=== PATIENT | female | born 1940 | race Caucasian/White ===

== ENCOUNTER 2017-11-02 18:00 | Inpatient (IN) | payer MEDICARE ==
[~2017-11-02] VITALS: Ht 157.5 cm; Wt 47.3 kg
[2017-11-02 18:00] VITALS: BP 182/74
[2017-11-02] MEDS ORDERED: ACETAMINOPHEN 650MG/20.3ML UDC PO PRN (19:00)
[2017-11-02] MEDS ORDERED: DEXTROSE 50% WATER 50ML SYRINGE IV PRN (19:00)
[2017-11-02] MEDS ORDERED: ZOLPIDEM TARTRATE 5MG TABLET PO PRN (19:00)
[2017-11-02] MEDS ORDERED: HYDROMORPHONE HCL/PF 2MG/ML CPJ IV NR (19:06)
[2017-11-02 20:00] VITALS: BP_SYST 192; BP_SYST 196; BP_DIAS 68; BP_DIAS 82
[2017-11-02 20:35] LABS: BASOPHILS % 0.5 % (0.0-2.0); EOSINOPHILS % 0.4 % (0.0-5.0); HEMATOCRIT. 31.9 % (36.0-48.0); LYMPHOCYTES % 8.8 % (20.0-50.0); MEAN CORPUSCULAR HEMOGLOBIN 26.2 pg (28.0-32.0); MEAN CORPUSCULAR VOLUME 76.1 fL (81.0-99.0); MEAN PLATELET VOLUME 7.5 fl (7.4-10.4); MONOCYTES % 7.9 % (2.0-8.0); NEUTROPHILS % 82.4 % (40.0-76.0); PLATELET 302 x1000/uL (130-400); RED BLOOD CELL COUNT 4.19 mill/uL (4.2-5.4); RED CELL DISTRIBUTION WIDTH 17.4 % (11.6-14.6)
[2017-11-02 20:36] LABS: PROTHROMBIN TIME 9.7 sec (9.1-11.1)
[2017-11-02 22:00] VITALS: BP 174/74
[2017-11-02] MEDS: INSULIN LISPRO 100 UNITS/ML SUBCUT SCH (22:08)
[2017-11-03] VITALS (11 sets, daily range): BP systolic 120–196; BP diastolic 71–96
[2017-11-03] MEDS: HYDROMORPHONE HCL/PF 2MG/ML CPJ IV PRN ×5 (00:35→20:59)
[2017-11-03] MEDS ORDERED: CHOL400T MT (02:33)
[2017-11-03] MEDS ORDERED: ALOG1TAB4 PO (02:33)
[2017-11-03] MEDS ORDERED: SIMV40TA5 MT (02:33)
[2017-11-03] MEDS ORDERED: ASPI-1159 PO (02:33)
[2017-11-03] MEDS ORDERED: BENA20TA10 PO (02:33)
[2017-11-03] MEDS ORDERED: CLOP75TA16 PO (02:33)
[2017-11-03] MEDS: INSULIN LISPRO 100 UNITS/ML SUBCUT SCH ×4 (07:20→21:00)
[2017-11-03] MEDS ORDERED: MEDICATION NOT ON FORMULARY EA (Benazepril Hcl 20 MG) PO SCH (09:00)
[2017-11-03] MEDS ORDERED: CHOLECALCIFEROL MT SCH (09:00)
[2017-11-03] MEDS: CLOPIDOGREL 75MG TABLET PO SCH (09:50)
[2017-11-03] MEDS: ASPIRIN 81MG EC TABLET PO SCH (09:50)
[2017-11-03] MEDS: BENAZEPRIL 20MG TABLET PO SCH ×2 (09:50→20:58)
[2017-11-03] MEDS: CHOLECALCIFEROL (VIT D3) 400 UNIT TABLET PO SCH (09:51)
[2017-11-03] MEDS: ENOXAPARIN 40MG/0.4ML SYR SUBCUT SCH ×2 (11:00→20:57)
[2017-11-03] MEDS ORDERED: POTASSIUM CHLORIDE 20MEQ TABLET SR PO NR (11:00)
[2017-11-03] MEDS: AMLODIPINE 5MG TABLET PO SCH ×2 (11:11→20:57)
[2017-11-03] MEDS: NITROGLYCERIN OINT 1GM/INCH UDPKT TD SCH ×3 (11:11→19:01)
[2017-11-03] MEDS ORDERED: IOHEXOL-350 100 ML BOTTLE ONE ×2 (15:11→15:16)
[2017-11-03] MEDS: ATORVASTATIN CALCIUM 20MG TABLET PO SCH (20:57)
[2017-11-03] MEDS ORDERED: MEDICATION NOT ON FORMULARY EA (Simvastatin 1 TAB) MT SCH (21:00)
[2017-11-03] MEDS: CLONIDINE 0.1MG TABLET PO SCH (22:11)
[2017-11-04] VITALS (16 sets, daily range): BP systolic 121–180; BP diastolic 55–80
[2017-11-04] MEDS: NITROGLYCERIN OINT 1GM/INCH UDPKT TD SCH ×4 (00:12→18:52)
[2017-11-04] MEDS: HYDROMORPHONE HCL/PF 2MG/ML CPJ IV PRN ×2 (02:04→09:48)
[2017-11-04] MEDS: CLONIDINE 0.1MG TABLET PO SCH ×3 (05:30→22:00)
[2017-11-04] MEDS: SODIUM CHLORIDE 0.45% 1,000 ML IV SCH ×2 (05:34→18:52)
[2017-11-04 06:18] LABS: HEMATOCRIT. 32.4 % (36.0-48.0); HEMOGLOBIN. 10.9 g/dL (12.0-16.0); MEAN CORPUSCULAR HEMOGLOBIN 26.1 pg (28.0-32.0); MEAN CORPUSCULAR VOLUME 77.6 fL (81.0-99.0); MEAN PLATELET VOLUME 7.8 fl (7.4-10.4); PLATELET 289 x1000/uL (130-400); RED BLOOD CELL COUNT 4.17 mill/uL (4.2-5.4); RED CELL DISTRIBUTION WIDTH 17.2 % (11.6-14.6)
[2017-11-04] MEDS: INSULIN LISPRO 100 UNITS/ML SUBCUT SCH ×4 (07:20→22:35)
[2017-11-04] MEDS: ENOXAPARIN 40MG/0.4ML SYR SUBCUT SCH (08:28)
[2017-11-04] MEDS: CLOPIDOGREL 75MG TABLET PO SCH (08:29)
[2017-11-04] MEDS: AMLODIPINE 5MG TABLET PO SCH ×2 (08:29→20:17)
[2017-11-04] MEDS: BENAZEPRIL 20MG TABLET PO SCH ×2 (08:29→22:27)
[2017-11-04] MEDS: ASPIRIN 81MG EC TABLET PO SCH (08:29)
[2017-11-04] MEDS: CHOLECALCIFEROL (VIT D3) 400 UNIT TABLET PO SCH (08:29)
[2017-11-04 09:02] LABS: PLATELET ESTIMATE NORMAL
[2017-11-04] MEDS ORDERED: BUPIVACAINE HCL/PF 0.5% (5MG/ML) 10ML ONE (12:45)
[2017-11-04] MEDS ORDERED: BACITRACIN ZINC 15GM TUBE TOP ONE (12:45)
[2017-11-04] MEDS ORDERED: THROMBIN (BOVINE) 5000 UNITS/VIAL TOP ONE ×2 (12:45→12:46)
[2017-11-04] MEDS ORDERED: LIDOCAINE HCL 1% 10 MG/ML 10ML VIAL ONE (12:45)
[2017-11-04] MEDS ORDERED: HEPARIN SODIUM 1,000 UNIT/1ML VIAL IV ONE (12:45)
[2017-11-04] MEDS ORDERED: BACITRACIN 50,000 UNITS/VIAL ONE (12:46)
[2017-11-04] MEDS ORDERED: GELATIN SPONGE,COMPRESSED SZ 100 ONE (12:46)
[2017-11-04] MEDS ORDERED: LABETALOL 5MG/ML SYR 20 MG/4 ML SYRINGE IV PRN (14:15)
[2017-11-04] MEDS ORDERED: MEPERIDINE HCL/PF 25MG/ML CPJ IV PRN (14:15)
[2017-11-04] MEDS ORDERED: ONDANSETRON HCL 4MG/2ML INJ IV PRN ×2 (14:15→20:45)
[2017-11-04] MEDS ORDERED: HYDROMORPHONE HCL/PF 2MG/ML CPJ IV PRN (14:15)
[2017-11-04] MEDS ORDERED: FENTANYL CITRATE/PF 50MCG/ML 2ML VIAL ONE (14:48)
[2017-11-04] MEDS ORDERED: MIDAZOLAM HCL 2 MG/2 ML VIAL ONE (14:48)
[2017-11-04] MEDS ORDERED: PROPOFOL 200MG/20ML VIAL IV ONE (14:48)
[2017-11-04] MEDS ORDERED: DEXAMETHASONE 4MG/ML 1ML VIAL ONE ×2 (14:49→15:08)
[2017-11-04] MEDS ORDERED: ONDANSETRON HCL 4MG/2ML INJ ONE ×2 (14:49→15:08)
[2017-11-04] MEDS ORDERED: IOHEXOL-300 100 ML BOTTLE ONE (15:31)
[2017-11-04] MEDS ORDERED: IODIXANOL 320MG/ML 100 ML BOTTLE IV ONE (15:31)
[2017-11-04] MEDS ORDERED: HEPARIN 1000 UNITS/ML 10ML ONE (16:31)
[2017-11-04] MEDS ORDERED: PROTAMINE SULFATE 10MG/ML VIAL 5ML IV ONE (16:31)
[2017-11-04] MEDS: ATORVASTATIN CALCIUM 20MG TABLET PO SCH (20:17)
[2017-11-04] MEDS: MORPHINE SULFATE 4 MG/ML CPJ (NOT FOR IM USE) IV PRN (20:22)
[2017-11-05] VITALS (15 sets, daily range): BP systolic 115–138; BP diastolic 50–68
[2017-11-05] MEDS: NITROGLYCERIN OINT 1GM/INCH UDPKT TD SCH ×5 (00:43→23:05)
[2017-11-05] MEDS: CLONIDINE 0.1MG TABLET PO SCH ×3 (06:10→22:43)
[2017-11-05] MEDS: SODIUM CHLORIDE 0.45% 1,000 ML IV SCH (06:10)
[2017-11-05 07:26] LABS: HEMATOCRIT. 27.2 % (36.0-48.0); HEMOGLOBIN. 9.2 g/dL (12.0-16.0); MEAN CORPUSCULAR HEMOGLOBIN 26.3 pg (28.0-32.0); MEAN CORPUSCULAR VOLUME 77.5 fL (81.0-99.0); PLATELET 247 x1000/uL (130-400); RED BLOOD CELL COUNT 3.52 mill/uL (4.2-5.4); RED CELL DISTRIBUTION WIDTH 17.4 % (11.6-14.6)
[2017-11-05] MEDS: INSULIN LISPRO 100 UNITS/ML SUBCUT SCH ×4 (08:00→20:11)
[2017-11-05] MEDS: CLOPIDOGREL 75MG TABLET PO SCH (08:01)
[2017-11-05] MEDS: ASPIRIN 81MG EC TABLET PO SCH (08:01)
[2017-11-05] MEDS: BENAZEPRIL 20MG TABLET PO SCH ×2 (08:01→20:13)
[2017-11-05] MEDS: AMLODIPINE 5MG TABLET PO SCH ×2 (08:01→20:12)
[2017-11-05] MEDS: CHOLECALCIFEROL (VIT D3) 400 UNIT TABLET PO SCH (08:02)
[2017-11-05] MEDS: ENOXAPARIN 40MG/0.4ML SYR SUBCUT SCH (08:02)
[2017-11-05 10:35] LABS: PLATELET ESTIMATE NORMAL
[2017-11-05] MEDS: MAGNESIUM/ALUMINUM HYDROXIDE/SIMETHICONE 30ML UDC PO PRN (15:05)
[2017-11-05] MEDS: MORPHINE SULFATE 4 MG/ML CPJ (NOT FOR IM USE) IV PRN ×2 (18:28→22:13)
[2017-11-05] MEDS: ATORVASTATIN CALCIUM 20MG TABLET PO SCH (20:13)
[2017-11-06] VITALS (12 sets, daily range): BP systolic 115–156; BP diastolic 50–76
[2017-11-06] MEDS: CLONIDINE 0.1MG TABLET PO SCH ×3 (05:21→22:14)
[2017-11-06] MEDS: NITROGLYCERIN OINT 1GM/INCH UDPKT TD SCH ×4 (05:22→23:07)
[2017-11-06] MEDS: HYDROMORPHONE HCL/PF 2MG/ML CPJ IV PRN (06:37)
[2017-11-06 07:49] LABS: BASOPHILS % 0.3 % (0.0-2.0); EOSINOPHILS % 0.2 % (0.0-5.0); HEMATOCRIT. 23.7 % (36.0-48.0); HEMOGLOBIN. 8.2 g/dL (12.0-16.0); MEAN CORPUSCULAR HEMOGLOBIN 26.8 pg (28.0-32.0); MEAN CORPUSCULAR VOLUME 77.5 fL (81.0-99.0); MONOCYTES % 11.2 % (2.0-8.0); NEUTROPHILS % 77.3 % (40.0-76.0); PLATELET 218 x1000/uL (130-400); RED BLOOD CELL COUNT 3.06 mill/uL (4.2-5.4); RED CELL DISTRIBUTION WIDTH 16.9 % (11.6-14.6)
[2017-11-06] MEDS: ENOXAPARIN 60MG/0.6ML SYR SUBCUT SCH (08:04)
[2017-11-06] MEDS: CLOPIDOGREL 75MG TABLET PO SCH (08:05)
[2017-11-06] MEDS: AMLODIPINE 5MG TABLET PO SCH ×2 (08:08→20:42)
[2017-11-06] MEDS: BENAZEPRIL 20MG TABLET PO SCH ×2 (08:08→20:42)
[2017-11-06] MEDS: ASPIRIN 81MG EC TABLET PO SCH (08:08)
[2017-11-06] MEDS: INSULIN LISPRO 100 UNITS/ML SUBCUT SCH ×4 (08:09→20:45)
[2017-11-06] MEDS: CHOLECALCIFEROL (VIT D3) 400 UNIT TABLET PO SCH (08:16)
[2017-11-06] MEDS: ATORVASTATIN CALCIUM 20MG TABLET PO SCH (20:42)
[2017-11-06] MEDS ORDERED: HYDROCODONE/APAP 7.5/325MG 1 TAB TABLET PO PRN (23:30)
[2017-11-07] VITALS (12 sets, daily range): BP systolic 129–178; BP diastolic 50–89
[2017-11-07] MEDS: CLONIDINE 0.1MG TABLET PO SCH ×3 (06:18→23:25)
[2017-11-07] MEDS: NITROGLYCERIN OINT 1GM/INCH UDPKT TD SCH ×4 (06:18→23:26)
[2017-11-07] MEDS: INSULIN LISPRO 100 UNITS/ML SUBCUT SCH ×4 (08:10→21:21)
[2017-11-07] MEDS: MORPHINE SULFATE 4 MG/ML CPJ (NOT FOR IM USE) IV PRN (08:15)
[2017-11-07] MEDS: CLOPIDOGREL 75MG TABLET PO SCH (08:17)
[2017-11-07] MEDS: ASPIRIN 81MG EC TABLET PO SCH (08:17)
[2017-11-07] MEDS: ENOXAPARIN 60MG/0.6ML SYR SUBCUT SCH (08:17)
[2017-11-07] MEDS: CHOLECALCIFEROL (VIT D3) 400 UNIT TABLET PO SCH (08:17)
[2017-11-07] MEDS: BENAZEPRIL 20MG TABLET PO SCH ×2 (08:17→20:59)
[2017-11-07] MEDS: AMLODIPINE 5MG TABLET PO SCH ×2 (08:17→20:59)
[2017-11-07 08:19] LABS: HEMATOCRIT 26.8 % (36.0-48.0); HEMOGLOBIN 8.9 g/dL (12.0-16.0); MEAN CORPUSCULAR VOLUME 78.3 fL (81.0-99.0); PLATELET 219 x1000/uL (130-400); RED BLOOD CELL COUNT 3.42 mill/uL (4.2-5.4)
[2017-11-07 08:51] LABS: CHLORIDE 97 mEq/L (98-107)
[2017-11-07] MEDS ORDERED: BISACODYL 10MG SUPP PR PRN (10:45)
[2017-11-07] MEDS ORDERED: NA PHOS,M-B/NA PHOS,DI-BA ENEMA 118ML PR SCH (10:45)
[2017-11-07] MEDS: LACTULOSE 20G/30ML UDC PO SCH ×3 (11:27→20:59)
[2017-11-07] MEDS: DOCUSATE SODIUM 100MG CAPSULE PO SCH (17:12)
[2017-11-07] MEDS: POLYETHYLENE GLYCOL 3350 (17GM) 1 DOSE PACK PO SCH (20:59)
[2017-11-07] MEDS: ATORVASTATIN CALCIUM 20MG TABLET PO SCH (20:59)
[2017-11-07] MEDS: MAGNESIUM/ALUMINUM HYDROXIDE/SIMETHICONE 30ML UDC PO PRN (23:25)
[2017-11-08] VITALS (13 sets, daily range): BP systolic 117–141; BP diastolic 36–61
[2017-11-08] MEDS: CLONIDINE 0.1MG TABLET PO SCH ×3 (06:34→21:32)
[2017-11-08] MEDS: NITROGLYCERIN OINT 1GM/INCH UDPKT TD SCH ×3 (06:35→18:22)
[2017-11-08] MEDS: INSULIN LISPRO 100 UNITS/ML SUBCUT SCH ×4 (07:59→21:40)
[2017-11-08] MEDS: CHOLECALCIFEROL (VIT D3) 400 UNIT TABLET PO SCH (08:00)
[2017-11-08] MEDS: ASPIRIN 81MG EC TABLET PO SCH (08:01)
[2017-11-08] MEDS: BENAZEPRIL 20MG TABLET PO SCH ×2 (08:01→21:33)
[2017-11-08] MEDS: AMLODIPINE 5MG TABLET PO SCH ×2 (08:01→21:32)
[2017-11-08] MEDS: DOCUSATE SODIUM 100MG CAPSULE PO SCH ×2 (08:01→17:00)
[2017-11-08] MEDS: CLOPIDOGREL 75MG TABLET PO SCH (08:01)
[2017-11-08] MEDS: ENOXAPARIN 60MG/0.6ML SYR SUBCUT SCH (08:02)
[2017-11-08] MEDS: MORPHINE SULFATE 4 MG/ML CPJ (NOT FOR IM USE) IV PRN ×2 (11:41→21:32)
[2017-11-08] MEDS ORDERED: MAGNESIUM/ALUMINUM HYDROXIDE/SIMETHICONE 30ML UDC PO PRN (14:15)
[2017-11-08] MEDS ORDERED: MAGNESIUM/ALUMINUM HYDROXIDE/SIMETHICONE 30ML UDC PO NR (14:15)
[2017-11-08] MEDS ORDERED: PANTOPRAZOLE SODIUM 40 MG/VIAL IV NR (14:30)
[2017-11-08] MEDS: ATORVASTATIN CALCIUM 20MG TABLET PO SCH (21:26)
[2017-11-08] MEDS: POLYETHYLENE GLYCOL 3350 (17GM) 1 DOSE PACK PO SCH (21:33)
[2017-11-09] VITALS (12 sets, daily range): BP systolic 110–154; BP diastolic 44–65
[2017-11-09] MEDS: NITROGLYCERIN OINT 1GM/INCH UDPKT TD SCH ×3 (00:17→12:15)
[2017-11-09] MEDS: CLONIDINE 0.1MG TABLET PO SCH ×2 (05:46→14:11)
[2017-11-09 07:07] LABS: BASOPHILS % 0.4 % (0.0-2.0); EOSINOPHILS % 0.3 % (0.0-5.0); HEMATOCRIT. 24.6 % (36.0-48.0); HEMOGLOBIN. 8.3 g/dL (12.0-16.0); LYMPHOCYTES % 10.6 % (20.0-50.0); MEAN CORPUSCULAR HEMOGLOBIN 25.9 pg (28.0-32.0); MEAN CORPUSCULAR VOLUME 76.9 fL (81.0-99.0); MEAN PLATELET VOLUME 8.3 fl (7.4-10.4); MONOCYTES % 14.6 % (2.0-8.0); NEUTROPHILS % 74.1 % (40.0-76.0); PLATELET 227 x1000/uL (130-400); RED CELL DISTRIBUTION WIDTH 16.9 % (11.6-14.6)
[2017-11-09] MEDS: INSULIN LISPRO 100 UNITS/ML SUBCUT SCH ×2 (08:00→12:16)
[2017-11-09] MEDS: DOCUSATE SODIUM 100MG CAPSULE PO SCH (08:01)
[2017-11-09] MEDS: CLOPIDOGREL 75MG TABLET PO SCH (08:01)
[2017-11-09] MEDS: AMLODIPINE 5MG TABLET PO SCH (08:01)
[2017-11-09] MEDS: ASPIRIN 81MG EC TABLET PO SCH (08:01)
[2017-11-09] MEDS: CHOLECALCIFEROL (VIT D3) 400 UNIT TABLET PO SCH (08:01)
[2017-11-09] MEDS: ENOXAPARIN 60MG/0.6ML SYR SUBCUT SCH (08:02)
[2017-11-09] MEDS ORDERED: BENAZEPRIL 10MG TABLET PO SCH (09:00)
[2017-11-09] MEDS ORDERED: PANTOPRAZOLE SODIUM 40 MG/VIAL IV SCH (09:00)
[2017-11-09] MEDS: MORPHINE SULFATE 4 MG/ML CPJ (NOT FOR IM USE) IV PRN (15:18)
== END 2017-11-09 16:44 | DRG 271 ==
LOC: 3WST 18:00
PROVIDERS: ADMIT Internal Medicine Clinical Cardiac Electrophysiology; ATTEND Internal Medicine Clinical Cardiac Electrophysiology
PROC: 047D3Z1 Dilation of Left Common Iliac Artery using Drug-Coated Balloon, Percutaneous Approach (ICD-10-PCS; 2017-11-04)
PROC: 04CJ3ZZ Extirpation of Matter from Left External Iliac Artery, Percutaneous Approach (ICD-10-PCS; 2017-11-04)
PROC: 047J3Z1 Dilation of Left External Iliac Artery using Drug-Coated Balloon, Percutaneous Approach (ICD-10-PCS; 2017-11-04)
PROC: 047L3Z1 Dilation of Left Femoral Artery using Drug-Coated Balloon, Percutaneous Approach (ICD-10-PCS; 2017-11-04)
PROC: 04CL3ZZ Extirpation of Matter from Left Femoral Artery, Percutaneous Approach (ICD-10-PCS; principal; 2017-11-04 13:00)
DX: E11.51 Type 2 diabetes mellitus with diabetic peripheral angiopathy without gangrene (principal); E87.1 Hypo-osmolality and hyponatremia; E46 Unspecified protein-calorie malnutrition; N17.9 Acute kidney failure, unspecified; Z68.1 Body mass index [BMI] 19.9 or less, adult; E11.65 Type 2 diabetes mellitus with hyperglycemia; I99.8 Other disorder of circulatory system; R20.3 Hyperesthesia; E87.6 Hypokalemia; D64.9 Anemia, unspecified; E78.5 Hyperlipidemia, unspecified; F17.210 Nicotine dependence, cigarettes, uncomplicated; K59.09 Other constipation; M48.061 Spinal stenosis, lumbar region without neurogenic claudication; E11.42 Type 2 diabetes mellitus with diabetic polyneuropathy; M48.02 Spinal stenosis, cervical region; F03.90 Unspecified dementia, unspecified severity, without behavioral disturbance, psychotic disturbance, mood disturbance, and anxiety; I10 Essential (primary) hypertension; Z79.4 Long term (current) use of insulin; Z71.6 Tobacco abuse counseling; Z83.3 Family history of diabetes mellitus; Z88.6 Allergy status to analgesic agent
CPT/HCPCS: 34812; 36415; 37184; 37220; 37224; 70551; 71045; 72141; 72146; 72148; 72191; 73590; 73706; 75710; 80048; 80053; 82962; 83036; 85025; 85027; 85347; 85610; 92523; 93005; 97162; 97166; 97530; C1725; C1769; C1884; C1893; C2623; C9113; J1100; J1170; J1644; J1650; J1815; J2175; J2250; J2270; J2405; J2704; J2720; J3010; J3490; J7030; Q9967

== ENCOUNTER 2017-11-14 16:30 | Inpatient (IN) | payer MEDICARE ==
[~2017-11-14] VITALS: Ht 160 cm; Wt 61.2 kg
[~2017-11-14 16:30] MED LIST: ALOG1TAB4 PO; ASPI-1159 PO; BENA20TA10 PO; CHOL400T MT; CLOP75TA16 PO; SIMV40TA5 MT
[2017-11-14 17:44] VITALS: BP 134/49
[2017-11-14 18:20] VITALS: BP 135/68
[2017-11-14] MEDS ORDERED: ONDANSETRON 4MG ODT PO PRN (18:30)
[2017-11-14] MEDS ORDERED: HYDROCODONE/ACETAMINOPHEN 10/325MG TABLET PO PRN (18:30)
[2017-11-14] MEDS ORDERED: BISACODYL 10MG SUPP PR PRN (18:30)
[2017-11-14] MEDS ORDERED: MAGNESIUM/ALUMINUM HYDROXIDE/SIMETHICONE 30ML UDC PO PRN (18:30)
[2017-11-14] MEDS ORDERED: DEXTROSE 50% WATER 50ML SYRINGE IV PRN (18:45)
[2017-11-14 19:34] LABS: TOTAL IRON BINDING CAPACITY 222 ug/dL (250-450)
[2017-11-14 20:00] VITALS: BP 137/48
[2017-11-14] MEDS: AMLODIPINE 5MG TABLET PO SCH (20:44)
[2017-11-14] MEDS: ACETAMINOPHEN 325MG TABLET PO PRN (20:44)
[2017-11-14] MEDS: ATORVASTATIN CALCIUM 20MG TABLET PO SCH (20:44)
[2017-11-14] MEDS: POLYETHYLENE GLYCOL 3350 (17GM) 1 DOSE PACK PO SCH (20:46)
[2017-11-14 20:57] LABS: VITAMIN B12 SERUM >2000 pg/mL pg/mL (211-911)
[2017-11-14] MEDS: BLOOD SUGAR DIAGNOSTIC STRIP TEST SCH (21:02)
[2017-11-14] MEDS: INSULIN LISPRO 100 UNITS/ML SUBCUT SCH (21:13)
[2017-11-14 22:00] VITALS: BP 137/48
[2017-11-14] MEDS: CLONIDINE 0.1MG TABLET PO SCH (22:00)
[2017-11-14] MEDS: NITROGLYCERIN OINT 1GM/INCH UDPKT TD SCH (22:00)
[2017-11-14] MEDS: INSULIN GLARGINE UD 100 UNITS/ML SYR SUBCUT SCH (23:26)
[2017-11-15] VITALS (7 sets, daily range): BP systolic 111–146; BP diastolic 39–53
[2017-11-15] MEDS: CLONIDINE 0.1MG TABLET PO SCH ×3 (05:12→21:15)
[2017-11-15] MEDS: NITROGLYCERIN OINT 1GM/INCH UDPKT TD SCH ×3 (05:13→17:37)
[2017-11-15 06:09] LABS: HEMATOCRIT. 23.2 % (36.0-48.0); MEAN CORPUSCULAR HEMOGLOBIN 26.3 pg (28.0-32.0); MEAN CORPUSCULAR VOLUME 76.7 fL (81.0-99.0); MEAN PLATELET VOLUME 8.1 fl (7.4-10.4); PLATELET 278 x1000/uL (130-400); RED BLOOD CELL COUNT 3.03 mill/uL (4.2-5.4); RED CELL DISTRIBUTION WIDTH 16.9 % (11.6-14.6)
[2017-11-15 06:24] LABS: CHLORIDE 93 mEq/L (98-107)
[2017-11-15] MEDS: BLOOD SUGAR DIAGNOSTIC STRIP TEST SCH ×4 (07:40→21:14)
[2017-11-15] MEDS: FERROUS SULFATE 300MG/5ML UDC PO SCH ×3 (08:46→17:36)
[2017-11-15] MEDS: CHOLECALCIFEROL (VIT D3) 400 UNIT TABLET PO SCH (08:48)
[2017-11-15] MEDS: AMLODIPINE 5MG TABLET PO SCH ×2 (08:49→21:14)
[2017-11-15] MEDS: DOCUSATE SODIUM 100MG CAPSULE PO SCH ×2 (08:50→17:38)
[2017-11-15] MEDS: INSULIN LISPRO 100 UNITS/ML SUBCUT SCH ×4 (08:52→21:18)
[2017-11-15] MEDS: ACETAMINOPHEN 325MG TABLET PO PRN ×2 (08:54→22:07)
[2017-11-15] MEDS ORDERED: ENOXAPARIN 40MG/0.4ML SYR SUBCUT SCH (09:00)
[2017-11-15] MEDS ORDERED: CLOPIDOGREL 75MG TABLET PO SCH (09:00)
[2017-11-15] MEDS ORDERED: ASPIRIN 81MG TABLET PO SCH (09:00)
[2017-11-15] MEDS ORDERED: LEVOFLOXACIN 250MG TABLET PO SCH (11:00)
[2017-11-15] MEDS ORDERED: IPRATROPIUM/ALBUTEROL 0.5-3(2.5)MG/3ML NEB HHN PRN (11:15)
[2017-11-15] MEDS: PANTOPRAZOLE SODIUM 40 MG/VIAL IV SCH (12:41)
[2017-11-15 13:39] LABS: PLATELET ESTIMATE NORMAL
[2017-11-15] MEDS: OXYCODONE HCL 5MG TABLET PO SCH ×2 (14:15→20:15)
[2017-11-15] MEDS: SODIUM CHLORIDE 0.45% 1,000 ML IV SCH (14:57)
[2017-11-15] MEDS ORDERED: SORBITOL 70% SOLN 30ML PO NR ×2 (16:00→20:00)
[2017-11-15] MEDS: ATORVASTATIN CALCIUM 20MG TABLET PO SCH (21:14)
[2017-11-15] MEDS: POLYETHYLENE GLYCOL 3350 (17GM) 1 DOSE PACK PO SCH (21:15)
[2017-11-15] MEDS: INSULIN GLARGINE UD 100 UNITS/ML SYR SUBCUT SCH (21:19)
[2017-11-15] MEDS ORDERED: ACETAMINOPHEN 325MG TABLET PO PRN (22:15)
[2017-11-16] VITALS: BP 152/59
[2017-11-16] MEDS: NITROGLYCERIN OINT 1GM/INCH UDPKT TD SCH ×4 (00:05→18:18)
[2017-11-16] MEDS: OXYCODONE HCL 5MG TABLET PO SCH ×4 (02:15→21:31)
[2017-11-16 04:00] VITALS: BP 127/49
[2017-11-16] MEDS: SODIUM CHLORIDE 0.45% 1,000 ML IV SCH ×2 (04:34→18:19)
[2017-11-16] MEDS: CLONIDINE 0.1MG TABLET PO SCH ×3 (06:00→21:32)
[2017-11-16] MEDS: BLOOD SUGAR DIAGNOSTIC STRIP TEST SCH ×4 (06:43→21:22)
[2017-11-16 08:00] VITALS: BP 142/59
[2017-11-16] MEDS: INSULIN LISPRO 100 UNITS/ML SUBCUT SCH ×4 (08:10→21:32)
[2017-11-16 08:28] LABS: HEMATOCRIT. 24.4 % (36.0-48.0); HEMOGLOBIN. 8.2 g/dL (12.0-16.0); MEAN CORPUSCULAR HEMOGLOBIN 25.9 pg (28.0-32.0); MEAN CORPUSCULAR VOLUME 77.1 fL (81.0-99.0); MEAN PLATELET VOLUME 7.6 fl (7.4-10.4); PLATELET 314 x1000/uL (130-400); RED BLOOD CELL COUNT 3.17 mill/uL (4.2-5.4); RED CELL DISTRIBUTION WIDTH 16.7 % (11.6-14.6)
[2017-11-16 08:38] LABS: D-DIMER 1.56 mg/L FEU (<0.50); PARTIAL THROMBOPLASTIN TIME 29.3 sec (23.4-31.0); PROTHROMBIN TIME 10.1 sec (9.1-11.1)
[2017-11-16] MEDS: PANTOPRAZOLE SODIUM 40 MG/VIAL IV SCH (09:18)
[2017-11-16] MEDS: CHOLECALCIFEROL (VIT D3) 400 UNIT TABLET PO SCH (09:21)
[2017-11-16] MEDS: FERROUS SULFATE 300MG/5ML UDC PO SCH ×3 (09:21→18:18)
[2017-11-16] MEDS: NICOTINE 14MG PATCH TD SCH (09:22)
[2017-11-16] MEDS: AMLODIPINE 5MG TABLET PO SCH ×2 (09:22→21:31)
[2017-11-16] MEDS: DOCUSATE SODIUM 100MG CAPSULE PO SCH ×2 (09:22→18:18)
[2017-11-16 12:00] VITALS: BP 154/50
[2017-11-16 14:09] LABS: ATYPICAL LYMPHOCYTES 1; PLATELET ESTIMATE NORMAL
[2017-11-16] MEDS ORDERED: SODIUM CHLORIDE 0.9% 10ML VIAL ONE (14:58)
[2017-11-16] MEDS ORDERED: SIMETHICONE 40 MG/0.6 ML 30ML ONE (15:55)
[2017-11-16 16:00] VITALS: BP 138/49
[2017-11-16] MEDS ORDERED: MIDAZOLAM HCL 5 MG/5 ML VIAL ONE (16:24)
[2017-11-16] MEDS ORDERED: FENTANYL CITRATE/PF 50MCG/ML 2ML VIAL ONE (16:24)
[2017-11-16] MEDS ORDERED: MIDAZOLAM HCL 5 MG/5 ML VIAL IV PRN (16:27)
[2017-11-16] MEDS ORDERED: FENTANYL CITRATE/PF 50MCG/ML 2ML VIAL IV PRN (16:28)
[2017-11-16 20:00] VITALS: BP 129/49
[2017-11-16] MEDS: POLYETHYLENE GLYCOL 3350 (17GM) 1 DOSE PACK PO SCH (21:00)
[2017-11-16] MEDS: ATORVASTATIN CALCIUM 20MG TABLET PO SCH (21:31)
[2017-11-16] MEDS: INSULIN GLARGINE UD 100 UNITS/ML SYR SUBCUT SCH (21:32)
[2017-11-17] VITALS (7 sets, daily range): BP systolic 121–152; BP diastolic 49–55
[2017-11-17] MEDS: NITROGLYCERIN OINT 1GM/INCH UDPKT TD SCH ×4 (00:35→18:06)
[2017-11-17] MEDS: OXYCODONE HCL 5MG TABLET PO SCH ×4 (02:15→22:13)
[2017-11-17] MEDS: SODIUM CHLORIDE 0.45% 1,000 ML IV SCH (05:15)
[2017-11-17] MEDS: CLONIDINE 0.1MG TABLET PO SCH ×3 (05:15→22:13)
[2017-11-17] MEDS: BLOOD SUGAR DIAGNOSTIC STRIP TEST SCH ×4 (05:16→21:00)
[2017-11-17 07:11] LABS: HEMATOCRIT. 23.9 % (36.0-48.0); MEAN CORPUSCULAR HEMOGLOBIN 25.6 pg (28.0-32.0); MEAN CORPUSCULAR VOLUME 76.3 fL (81.0-99.0); MEAN PLATELET VOLUME 7.6 fl (7.4-10.4); PLATELET 307 x1000/uL (130-400); RED BLOOD CELL COUNT 3.13 mill/uL (4.2-5.4); RED CELL DISTRIBUTION WIDTH 16.7 % (11.6-14.6)
[2017-11-17] MEDS: INSULIN LISPRO 100 UNITS/ML SUBCUT SCH ×4 (08:10→22:45)
[2017-11-17] MEDS: NICOTINE 14MG PATCH TD SCH (09:44)
[2017-11-17] MEDS: CHOLECALCIFEROL (VIT D3) 400 UNIT TABLET PO SCH (09:44)
[2017-11-17] MEDS: FERROUS SULFATE 300MG/5ML UDC PO SCH ×3 (09:44→18:06)
[2017-11-17] MEDS: DOCUSATE SODIUM 100MG CAPSULE PO SCH ×2 (09:44→18:06)
[2017-11-17] MEDS: AMLODIPINE 5MG TABLET PO SCH ×2 (09:44→22:13)
[2017-11-17] MEDS: PANTOPRAZOLE SODIUM 40 MG/VIAL IV SCH (10:19)
[2017-11-17] MEDS ORDERED: CLOPIDOGREL 75MG TABLET PO SCH (10:45)
[2017-11-17 11:37] LABS: PLATELET ESTIMATE NORMAL
[2017-11-17] MEDS: SUCRALFATE 1G TABLET PO SCH ×3 (13:16→22:12)
[2017-11-17] MEDS ORDERED: FAMOTIDINE 20MG TABLET PO SCH (21:00)
[2017-11-17] MEDS: POLYETHYLENE GLYCOL 3350 (17GM) 1 DOSE PACK PO SCH (22:12)
[2017-11-17] MEDS: ATORVASTATIN CALCIUM 20MG TABLET PO SCH (22:13)
[2017-11-17] MEDS: INSULIN GLARGINE UD 100 UNITS/ML SYR SUBCUT SCH (22:46)
[2017-11-18] MEDS ORDERED: ASPIRIN 81MG EC TABLET PO SCH (09:00)
[2017-11-18 19:10] LABS: ANTI-NUCLEAR ANTIBODIES DIRECT Positive (Negative)
[2017-11-19 15:06] LABS: ANTI-MYELOPEROXIDASE AB < 9.0 U/mL (0.0-9.0); ANTI-PROTEINASE 3 ABS < 3.5 U/mL (0.0-3.5)
[2017-11-22 10:07] LABS: ATYPICAL P-ANCA <1:20 titer (Neg:<1:20); CYTOPLASMIC C-ANCA <1:20 titer (Neg:<1:20); PERINUCLEAR P-ANCA <1:20 titer (Neg:<1:20)
== END 2017-11-17 23:25 | DRG 393 ==
LOC: 7WST 16:30
PROVIDERS: ADMIT Internal Medicine; ATTEND Internal Medicine
PROC: 0DJD8ZZ Inspection of Lower Intestinal Tract, Via Natural or Artificial Opening Endoscopic (ICD-10-PCS; 2017-11-16)
PROC: 0DB68ZX Excision of Stomach, Via Natural or Artificial Opening Endoscopic, Diagnostic (ICD-10-PCS; principal; 2017-11-16 15:00)
DX: K55.20 Angiodysplasia of colon without hemorrhage (principal); E43 Unspecified severe protein-calorie malnutrition; K29.71 Gastritis, unspecified, with bleeding; G93.40 Encephalopathy, unspecified; E87.1 Hypo-osmolality and hyponatremia; E11.65 Type 2 diabetes mellitus with hyperglycemia; D50.9 Iron deficiency anemia, unspecified; D72.819 Decreased white blood cell count, unspecified; E11.51 Type 2 diabetes mellitus with diabetic peripheral angiopathy without gangrene; E78.00 Pure hypercholesterolemia, unspecified; E78.5 Hyperlipidemia, unspecified; F03.90 Unspecified dementia, unspecified severity, without behavioral disturbance, psychotic disturbance, mood disturbance, and anxiety; F17.210 Nicotine dependence, cigarettes, uncomplicated; G62.9 Polyneuropathy, unspecified; I11.9 Hypertensive heart disease without heart failure; J44.9 Chronic obstructive pulmonary disease, unspecified; K44.9 Diaphragmatic hernia without obstruction or gangrene; K59.09 Other constipation; K64.8 Other hemorrhoids; M48.02 Spinal stenosis, cervical region; M48.061 Spinal stenosis, lumbar region without neurogenic claudication; Z68.23 Body mass index [BMI] 23.0-23.9, adult; Z71.6 Tobacco abuse counseling
CPT/HCPCS: 36415; 71045; 80048; 82270; 82550; 82607; 82962; 83520; 83540; 83550; 83615; 85379; 86038; 86256; 86850; 86900; 88305; 88313; 93005; 97162; 99152; A4216; C9113; J1815; J2250; J3010